=== PATIENT | female | born 1950 | race Caucasian/White ===

== ENCOUNTER 2016-09-13 16:00 | Outpatient (CLI) | payer MEDICARE | END 2016-09-13 16:01 | LOC: HPCALD 16:00 → BURLABSP 20:15 | PROVIDERS: ATTEND Family Medicine | DX: R55 Syncope and collapse (principal); R00.0 Tachycardia, unspecified ==

== ENCOUNTER 2016-10-10 10:50 | Outpatient (CLI) | payer MEDICARE ==
[2016-10-10 12:34] LABS: #Basophils 0.1 thou/uL (0.0-0.2); #Eosinphils 0.3 thou/uL (0.0-0.7); #Lymphocytes 3.3 thou/uL (1.20-3.40); #Monocytes 0.7 thou/uL (0.11-0.59); #Neutrophils 3.8 thou/uL (1.40-6.50); %Basophils 0.8 % (0.0-1.0); %Eosinophils 3.3 % (0.0-10.0); %Monocytes 8.9 % (0.0-10.0); Hematocrit 41.9 % (36.0-47.0); Mean Platelet Volume 6.8 fL (7.4-10.4); White Blood Cell (WBC) Count 8.2 thou/uL (4.8-10.8)
[2016-10-10 13:25] LABS: Hemoglobin A1c 5.2 % (4.0-6.0)
[2016-10-10 13:55] LABS: Anion Gap 15 mmol/L (10-20); BUN (Urea Nitrogen) 12 mg/dL (9.8-20.1); Calc. Creatinine Clearance 0 mL/min (70-130); Calcium 9.4 mg/dL (7.8-10.44); Carbon Dioxide 27 mmol/L (23-31); Chloride 106 mmol/L (98-107); Estimated GFR-MDRD 80
== END 2016-10-10 10:51 | disposition home or self-care (01) ==
LOC: HPCALD 10:50
PROVIDERS: ATTEND Family Medicine
DX: R00.0 Tachycardia, unspecified (principal); R55 Syncope and collapse
CPT/HCPCS: 36415; 80048; 83036; 84443; 85025

== ENCOUNTER 2016-12-11 20:57 | Emergency (ER) | payer MEDICARE ==
[2016-12-11] MEDS ORDERED: Ondansetron HCl/PF 4 MG/2 ML Vial ONE ×2 (21:44→22:43)
[2016-12-11 21:54] LABS: #Basophils 0.1 thou/uL (0.0-0.2); #Eosinphils 0.2 thou/uL (0.0-0.7); #Lymphocytes 3.3 thou/uL (1.20-3.40); #Monocytes 0.4 thou/uL (0.11-0.59); %Eosinophils 2.1 % (0.0-10.0); %Lymphocytes 41.3 % (21.0-51.0); %Monocytes 5.5 % (0.0-10.0); Hemoglobin 14.4 g/dL (12.0-16.0); Mean Corpuscular HGB CONC 35.6 g/dL (32.0-36.0); Mean Corpuscular Hemoglobin 34.4 pg (27.0-31.0); Mean Corpuscular Volume 96.4 fl (81.0-99.0); PLT Morphology Comment Appears Adequate; Platelet Count 298 thou/uL (130-400); RBC Distribution Width 11.7 % (11.5-14.5); RBC Morphology Normal; Red Blood Cell (RBC) Count 4.16 mill/uL (4.20-5.40); White Blood Cell (WBC) Count 7.9 thou/uL (4.8-10.8)
[2016-12-11 21:55] LABS: MDiff Complete? YES; Manual Diff?? NO; PTT 26.4 SEC (22.9-36.1); Prothrombin Time 12.9 SEC (12.0-14.7)
[2016-12-11 21:56] LABS: D-Dimer Test 0.39 *mcg/mL (0.27-0.43)
[2016-12-11 22:03] LABS: ALT (SGPT) 18 U/L (0-55); AST (SGOT) 21 U/L (5-34); Albumin 4.5 g/dL (3.4-4.8); Alkaline Phosphatase 70 U/L (40-150); Anion Gap 16 mmol/L (10-20); BUN (Urea Nitrogen) 15 mg/dL (9.8-20.1); Bilirubin, Total 0.3 mg/dL (0.2-1.2); CK (CPK) 83 U/L (29-168); Calc. Creatinine Clearance 0 mL/min (70-130); Calcium 9.9 mg/dL (7.8-10.44); Carbon Dioxide 25 mmol/L (23-31); Chloride 106 mmol/L (98-107); Estimated GFR-MDRD 82; Globulin 2.8 g/dL (2.4-3.5); Glucose 117 mg/dL (80-115); Potassium 3.5 mmol/L (3.5-5.1); Protein, Total 7.3 g/dL (5.8-8.1); Sodium 143 mmol/L (136-145)
[2016-12-11 22:11] LABS: Blood, Urine Small (Negative); Clarity Slightly Cloudy (Clear); Glucose, Urine (Dipstick) Negative (Negative); Leukocyte Large (Negative); Nitrite Negative (Negative); Protein, Urine (Dipstick) Trace mg/dL (Neg-Trace); Specific Gravity, Urine 1.025 (1.005-1.030); Urobilinogen 0.2 mg/dL (0.2-1.0); pH, Urine 5.5 (5.0-9.0)
[2016-12-11 22:12] LABS: Bilirubin Negative (Negative)
[2016-12-11 22:25] LABS: Bacteria/HPF 1+ HPF (None Seen); RBC/HPF 0-3 HPF (0-3); Squamous Epithelial 0-3 HPF (0-3); WBC/HPF 21-50 HPF (0-3)
[2016-12-11 22:26] LABS: Hyaline Casts/LPF 0-3 HYALINE CAST LPF (0-3 Hyaline); Other Microscopic Description FEW CLUE CELLS
[2016-12-11] MEDS ORDERED: Morphine Sulfate 2 MG/ML SYRINGE ONE (22:36)
[2016-12-11] MEDS ORDERED: Adacel (T-DAP) 0.5 ML VIAL ONE (22:36)
== END 2016-12-12 03:35 | disposition home or self-care (01) ==
LOC: BURERS 20:57
DX: T63.001A Toxic effect of unspecified snake venom, accidental (unintentional), initial encounter (principal); I10 Essential (primary) hypertension; E78.5 Hyperlipidemia, unspecified
CPT/HCPCS: 80053; 81003; 81015; 82550; 85025; 85379; 85384; 85610; 85730; 90471; 90715; 93005; 96361; 96374; 96375; 96376; J2270; J2405